=== PATIENT | female | born 1990 | race Hispanic/Latino ===

== ENCOUNTER 2017-05-31 18:06 | Emergency (ER) | payer BC ==
[2017-05-31] MEDS ORDERED: Acetaminophen 500 MG TAB ONE (19:44)
[2017-05-31 20:09] LABS: Bilirubin Negative (Negative); Blood, Urine Negative (Negative); Glucose, Urine (Dipstick) Negative (Negative); Ketone, Urine Trace mg/dL (Negative); Nitrite Negative (Negative); Protein, Urine (Dipstick) Negative (Neg-Trace); Urobilinogen 0.2 mg/dL (0.2-1.0)
[2017-05-31 20:10] LABS: Bacteria/HPF Rare-Few HPF (None Seen); Hyaline Casts/LPF 7-10 HYALINE CAST LPF (0-3 Hyaline)
[2017-05-31] MEDS ORDERED: Ketorolac Tromethamine 30 MG/ML VIAL ONE (20:24)
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
== END 2017-05-31 21:55 | disposition home or self-care (01) ==
LOC: ERS 18:06
DX: R51 Headache (principal); V49.9XXA Car occupant (driver) (passenger) injured in unspecified traffic accident, initial encounter; Y92.410 Unspecified street and highway as the place of occurrence of the external cause
CPT/HCPCS: 70450; 72125; 81003; 81015; 81025; J1885